=== PATIENT | female | born 1995 | race Caucasian/White ===

== ENCOUNTER 2023-01-15 21:17 | Outpatient (REF) | payer OTHER, SELFPAY ==
[2023-01-15 22:46] LABS: Adenovirus NOT DETECTED (NOT DETECTE); Bordetella parapertussis NOT DETECTED (NOT DETECTE); Coronavirus 229E NOT DETECTED (NOT DETECTE); Coronavirus HKU1 NOT DETECTED (NOT DETECTE); Coronavirus NL63 NOT DETECTED (NOT DETECTE); Coronavirus OC43 NOT DETECTED (NOT DETECTE); Human Metapneumovirus NOT DETECTED (NOT DETECTE); Human Rhinovirus/Enterovirus NOT DETECTED (NOT DETECTE); Influenza A NOT DETECTED (NOT DETECTE); Influenza B NOT DETECTED (NOT DETECTE); Mycoplasma pneumoniae NOT DETECTED (NOT DETECTE); Parainfluenza Virus 1 NOT DETECTED (NOT DETECTE); Parainfluenza Virus 2 NOT DETECTED (NOT DETECTE); Parainfluenza Virus 3 NOT DETECTED (NOT DETECTE); Respiratory Syncytial Virus NOT DETECTED (NOT DETECTE); SARS-CoV-2 NOT DETECTED (NOT DETECTE)
[2023-01-16 00:51] LABS: Parainfluenza Virus 4 DETECTED (NOT DETECTE)
== END 2023-01-15 21:18 | disposition home or self-care (01) ==
LOC: LAB 21:17
PROVIDERS: Visit Provider Nurse Practitioner Primary Care
DX: J06.9 Acute upper respiratory infection, unspecified (principal)
CPT/HCPCS: 0202U; 87070

== ENCOUNTER 2024-09-17 20:40 | Outpatient (OUT) | payer OTHER, SELFPAY ==
--- OUTSIDE RECORDS SUMMARY | 2024-06-24 06:15 | XMS_ITS ---
Author Organization [facility] Address [address] [place] [id number] Care Team Providers Care Journeyman Mechanic Name Role Phone Roseline Pickens Primary Care Provider [phone] Devan Olivia Unavailable [phone] REASON FOR VISIT 1 month f/u Social History Sex Assigned At : Social History Observation Description Sex Assigned At Female Encounters Encounter Location Date Provider Diagnosis Main [address] [place], [place] [id number] 06/24/2024 Devan Scanlon Plan Of Treatment Next Appt Details Provider Name:Devan Scanlon , 09/22/2024 11:15:00 AM, [address] [place], [id number], Progress Notes * Audie REDDYOB:1995 (29 yo F)Acc No.[id number]:06/24/2024 Patient: Lyn BYERS Provider: ADIS Mohan :1995 A ge:29 Y S ex:Female Date:06/24/2024 Phone: Address:[address], [id number] Pcp:Roseline Pickens Subjective: * Chief Complaints: * 1 . 1 month f/u. * Medical History: Objective: * Vitals: Assessment: Plan: * Treatment: Care Plan: * Problems: * Billing Information: * Visit Code: * Procedure Codes: Care Plan Details* * Electronic signature of ADIS Carr on 09/17/2024 at 08:44 PM EDT Sign off status: Pending * Provider: JAMEL MohanHNP-BC Date: 0 06/24/2024 Generated for Guy mooney/Karli/Lopez on: 0 09/17/2024 08:44 PM EDT
--- OUTSIDE RECORDS SUMMARY | 2024-09-17 20:44 | XMS_ITS | Encounter Summary ---
Author Organization [facility] tem Address [id number] [address] [place] [address] Care Team Providers Care Maintenance Apprentice Name Role Phone Yoko Bhakta Primary Care Provider [phone]- [phone] Encounter Details Date Type Department Care Team (Late st Contact Info) Description 04/07/2022 Orders Only [facility] [address] [place] [address] [address] [place] [address] Corrie Bueno PA-C [address] [place] [address], [address] [place] [address] Social History Tobacco Use Types Packs/Day Years Used Date Smoking Tobacco: Every Day Vaping/E-cigarettes Smokeless Tobacco: Never Alcohol Use Standard Drinks/Week Comments Not Currently 0 (1 standard drink = 0.6 oz pur e alcohol) Comments Unknown Sex and Gender Information Value Date Recorded Sex Assigned at Not on file Legal Sex Female 4:31 PM EDT Gender Identity Not on file Sexual Orientation Not on file documented as of this encounter Progress Notes * Corrie Bueno PA-C - 04/07/2022 3:45 PM EST New patient appointment 05/26/2022 Labs reviewed: 04/05/2022 CMP unremarkable 03/17/2022 CMP 03/17/2022 negative GI panel, negative C diff 04/05/2022 CBC unremarkable documented in this encounter Plan of Treatment Not on file documented as of this encounter Procedures Procedure Name Priority Date/Time Associated Diagnosis Comments MULTIPLE LABS Routine 03/17/2022 documented in this encounter Results * Multiple labs (03/17/2022) us Corrie Bueno PA-C [facility] Final Resu lt MANUALLY TRANSCRIBED RESULTS documented in this encounter Visit Diagnoses Not on filedocumented in this encounter Additional Health Concerns Infection Onset Date Last Indicated Resolved Time Enteric Rule-Out 09/01/2022 09/01/2022 09/01/2022 2:44 PM EDT COVID-19 Rule-Out 06/12/2023 06/12/2023 06/12/2023 7:13 PM EST COVID-19 Rule-Out 01/06/2024 01/06/2024 01/06/2024 9:10 PM EDT documented as of this encounter Care Teams Maintenance Apprentice Relationship Specialty Start Date End Date Yoko Bhakta APRN-FNP [address] [place] [address] PCP - General Family Medicine 11/08/23 documented as of this encounter
--- OUTSIDE RECORDS SUMMARY | 2024-09-17 20:44 | XMS_ITS | Encounter Summary ---
Author Organization [facility] Address [id number] [address] [place] [address] Care Team Providers Care Tipple Repairer Name Role Phone Yoko Bhakta TITLE I TEACHERWESLEY Primary Care Provider [phone]- [phone] Encounter Details Date Type Department Care Team (Late st Contact Info) Description 09/09/2024 Telephone [facility] [address] [place] [address] Leeanne Hooks, TOMAS Social History Tobacco Use Types Packs/Day Years Used Date Smoking Tobacco: Former Cigarettes Q uit: 09/16/2022 Vaping/E-cigarettes Passive Smoke Exposure: Past Smokeless Tobacco: Never Comments:Quit cigarette use 2019 05 to 1 ppd since age 13 currently vaping Delta 8 quit nicotine in vape Alcohol Use Standard Drinks/Week Comments Not Currently 0 (1 standard drink = 0.6 oz pur e alcohol) [facility] Utilities Answer Date Recorded In the past 12 months has [employer], gas, oil, or water [employer] threatened to shut off services in your home? No 06/13/2023 Social Connection and Isolat ion Panel [NHANES] Answer Date Recorded In a typical week, how many times do you talk on the phone with family, friends, or neighbors? More than three times a week 06/13/2023 How often do you get togethe r with friends or relatives? More than three times a week 06/13/2023 How often do you attend chur ch or nondenominational services? Never 06/13/2023 Do you belong to any clubs o r organizations such as latter-day groups, unions, fraternal or athletic groups, or school groups? No 06/13/2023 How often do you attend meet ings of the clubs or organizations you belong to? Never 06/13/2023 Are you , , di vorced, , never , or living with a partner? 06/13/2023 AUDIT-C Answer Date Recorded Q1: How often do you have a drink containing alcohol? Never 06/13/2023 Q2: How many drinks containi ng alcohol do you have on a typical day when you are drinking? Patient does not drink Q3: How often do you have si x or more drinks on one occasion? Never 06/13/2023 Overall Financial Resource Strain (CARDIA) Answe r Date Recorded How hard is it for you to pa y for the very basics like food, housing, medical care, and heating? Not hard at all 06/13/2023 PHQ-2 Answer Date Recorded Total Score 9 06/11/2024 [facility] - Occupational Stress Questionnaire Answer Date Recorded Do you feel stress - tense, restless, nervous, or anxious, or unable to sleep at night because your mind is troubled all the time - these days? Only a little 06/13/2023 Exercise Vital Sign Answer Date Recorde d On average, how many days pe r week do you engage in moderate to strenuous exercise (like a brisk walk)? 0 days 06/13/2023 On average, how many minutes do you engage in exercise at this level? 0 min 06/13/2023 PRAPARE - Transportation Answer Date Re corded In the past 12 months, has l ack of transportation kept you from medical appointments or from getting medications? No 09/2023 In the past 12 months, has l ack of transportation kept you from meetings, work, or from getting things needed for daily living? No 06/13/2023 Housing Instability Answer Date Recorde d Are you worried or concerned that in the next two months you may not have stable housing that you own, rent or stay in as a part of a household? No 06/13/2023 Childcare Answer Date Recorded Do problems getting child ca re make it difficult for you to work or study? No 06/13/2023 Employment Answer Date Recorded Do you need help finding a [facility] and/or a training program? No 06/13/2023 Hunger Screening Answer Date Recorded Within the past 12 months we worried whether our food would run out before we got money to buy more. Never True 08/08/2024 Within the past 12 months th e food we bought just didn't last and we didn't have money to get more. Never True 08/08/2024 Purpose - Life Answer Date Recorded I have a purpose and direction in my life. Agree 06/13/2023 Comments No Sex and Gender Information Value Date Recorded Sex Assigned at Not on file Legal Sex Female 4:31 PM EDT Gender Identity Not on file Sexual Orientation Not on file documented as of this encounter Miscellaneous Notes * Telephone Encounter - Leeanne Hooks CMA - 09/09/2024 12:30 PM EDT Phoned pt in regards to appt that was scheduled for 09/24/24 for PRODUCT TRANSFER PUMPER Referral from [facility] for chest pain that was cancelled and per pt declines to reschedule at this time as [place] of [place]. documented in this encounter Plan of Treatment Not on file documented as of this encounter Goals Goal Patient Goal Type Associated Problems Recent Progress Patient-Stated? Author safe transition to home General Yes Clara Metz LSW Note: Evaluation of progress towards goal: safe transition to home with self care documented as of this encounter Visit Diagnoses Not on filedocumented in this encounter Additional Health Concerns Assessment Noted Time PHQ-9 Depression Total Score: 9 06/12/19 25 1:40 PM EST A Body Mass Index follow-up plan has been documented for the patient 06/11/2024 2:00 PM EST documented as of this encounter Care Teams Tipple Repairer Relationship Specialty Start Date End Date Yoko Bhakta APRN-NATE [address] [place] [address] PCP - General Family Medicine 11/08/23 documented as of this encounter
--- OUTSIDE RECORDS SUMMARY | 2024-09-17 20:44 | XMS_ITS | Patient Health Record ---
Author Organization [facility] Address [address] [facility] [place] [address] Care Team Providers Care Senior Litigation Paralegal Name Role Phone Molly Lima Primary Care Provider Allergies Allergen (clinical drug ingredient) Drug/Non Drug Allergy documented on EMR Reaction Allergy Type Onset Date Status amoxicillin Amoxicillin Unknown Drug Allergy Act marylou morphine Morphine Sulfate Unknown Drug Allergy Active Reason For Referral No Information Social History Tobacco Use: Social History Observation Description Date Details (start date - stop date) Current Smoker NA - NA Sex Assigned At : Social History Observation Description Sex Assigned At Female Tobacco Use/Smoking Question Answer Notes Are you a current smoker when did you start smoking? 14 years old How often do you smoke cigarettes? every day How many cigarettes a day do you smoke? 5 or les s How soon after you wake up d o you smoke your first cigarette? 31-60 minutes Are you interested in quitting? Thinking about q uitting Additional Findings: Tobacco User Light cigarett e smoker ((1-9 cigs/day) Alcohol Screen (Audit-C) Question Answer Notes Did you have a drink contain ing alcohol in the past year? Yes How often did you have a dri nk containing alcohol in the past year? Monthly or less (1 point) How many drinks did you have on a typical day when you were drinking in the past year? 1 or 2 drinks (0 point) How often did you have 6 or more drinks on one occasion in the past year? Never (0 point) Points 1 Interpretation Negative Sexual History Question Answer Notes Had sex in the past 12 months (vaginal, oral, or anal)? Yes with Men only Use protection? No Have you ever had a Sexually transmitted disease ? No Last menstrual period 12/08/17 Tobacco use other than smoking: Question Answer Notes Are you an other tobacco user? No Plan Of Treatment No Information Medical (General) History Medical History History ICD Code asthma HTN Surgical History Surgery Date(Month/Year) cyst, ovary surgery 2013 Hospitalization History Reason Date(Month/Year) [facility] for 3 days for ovary leonardo wilfredo 2013
--- OUTSIDE RECORDS SUMMARY | 2024-09-17 20:44 | XMS_ITS | Clinical Summary ---
Author Organization [employer] Address [facility] [id number] [address] [place] [address] Care Team Providers Care Self Contained Behavior Unit Teacher Name Role Phone Yoko Bhakta Primary Care Provider [phone] Allergies Active Allergy Reactions Criticality Noted Date Comments Adhesive Rash Low 09/23/2021 Amoxicillin Hives 09/23/2021 Cephacetrile Hives 09/23/2021 Sumatriptan Anaphylaxis High 09/23/2021 Morphine Headache Medium 09/15/2022 Severe migraine Medications hydrOXYzine (VISTARIL) 50 mg capsule Take 1 capsule (50 mg total) by mouth 3 (three) times a day as needed for anxiety. 08/27/19 22 Active ARIPiprazole (ABILIFY) 10 mg tabletIndications :bipolar disorder Take 1 tablet (10 mg total) by mouth nightly Indications: manic-depression . 08/27/19 22 Active hydrocortisone (HYTONE) 2.5 % cream Apply 1 Application topically as needed (hemorrhoids). 04/04/20 22 Active olmesartan (BENICAR) 20 mg tabletIndications :hypertension Take 1 tablet (20 mg total) by mouth once daily at bedtime Indications: high blood pressure. 05/24/19 23 Active FLORASTOR 250 mg capsule Take 1 capsule (250 mg total) by mouth in the morning. 05/05/19 23 Active fluticasone propionate (FLONASE) 50 mcg/actuation nasal sprayIndications: allergic rhinitis Administer 1 spray into each nostril in the morning. Indications: inflammation of the nose due to an allergy. 08/19/19 23 Active loratadine (CLARITIN) 10 mg tabletIndications :allergic rhinitis Take 1 tablet (10 mg total) by mouth in the morning. Indications: inflammation of the nose due to an allergy. 08/19/19 23 Active omeprazole (PriLOSEC) 40 mg capsule Take 1 capsule (40 mg total) by mouth nightly. Active tiZANidine (ZANAFLEX) 4 mg tablet Take 1 tablet (4 mg total) by mouth daily as needed for muscle spasms. Active propranolol LA (INDERAL LA) 80 mg 24 hr capsule Take 1 capsule (80 mg total) by mouth in the morning. Active rimegepant (NURTEC ODT) 75 mg tablet,disintegra ting One tablet daily under the tongue PRN up to 2 times per week 8 tablet 06/14/19 24 Active escitalopram (LEXAPRO) 10 mg tablet Take 1 tablet (10 mg total) by mouth in the morning. 01/14/20 24 Active albuterol (PROVENTIL,VENTOL IN) 2.5 mg /3 mL (0.083 %) nebulizer solutionIndicatio ns:Exacerbation of asthma, unspecified asthma severity, unspecified whether persistent Inhale 3 mL (2.5 mg total) by nebulization every 6 (six) hours as needed for wheezing. 75 mL 02/16/20 24 Active ibuprofen (MOTRIN) 800 mg tablet Take 1 tablet (800 mg total) by mouth every 6 (six) hours as needed for pain. Active ubrogepant (UBRELVY) 100 mg tablet Take by mouth. Activ e lamoTRIgine (LaMICtal) 25 mg tablet Take 2 tablets (50 mg total) by mouth. 06/20/19 25 Active norethindrone (MICRONOR) 0.35 mg tabletIndications :Surveillance of contraceptive pill Take 1 tablet (0.35 mg total) by mouth in the morning. 28 tablet 11 07/10/19 25 Active ondansetron (ZOFRAN) 4 mg tabletIndications :Nausea Take 1 tablet (4 mg total) by mouth every 8 (eight) hours as needed for nausea or vomiting. 20 tablet 07/11/19 25 Active Active Problems Problem Noted Date Diagnosed Date Acute respiratory failure with hypoxia Exacerbation of asthma 06/13/2023 Migraine headache 06/13/2023 Shortness of breath 04/23/2023 Murmur, cardiac 04/23/2023 GERD (gastroesophageal reflux disease) 3 Diarrhea 09/15/2022 Vapes nicotine containing substance 09/22/2021 Essential hypertension 09/22/2021 Syncope 09/22/2021 Encounters Date Type Department Care Team Description 09/09/2024 Telephone [facility] [address] [place] [address] Leeanne Hooks CMA 08/20/2024 8:21 PM EDT - 08/20/2024 10:50 PM EDT Emergency [facility] - Emergency [address] [facility] [phone] Asif Martin MD Syncope, unspecified syncope type (Primary Dx) Discharge Disposition: Home 08/20/2024 Travel 08/20/2024 Nurse Triage [facility] Call Center [address] [place] [address] Stu Almanza RN 08/08/2024 7:54 PM EDT - 08/08/2024 10:30 PM EDT Emergency [facility] - Emergency [address] [place] [phone] Branden Stallings MD Chest pain, unspecified type (Primary Dx) Discharge Disposition: Home 08/08/2024 Travel 07/18/2024 11:37 AM EDT - 07/18/2024 2:42 PM EDT Emergency [facility] - Emergency [address] [facility] [place] [phone] Maricel Peguero MD BRBPR (bright red blood per rectum) (Primary Dx); Hemorrhoids, unspecified hemorrhoid type Discharge Disposition: Home 07/18/2024 Travel 07/10/2024 Telephone [facility] [address] [place] [address] Anika Herring MA 07/09/2024 9:00 AM EDT Office Visit [facility] [address] [place] [place] [address] Encounter for counseling regarding contraception (Primary Dx); Surveillance of contraceptive pill 07/07/2024 5:02 PM EDT - 07/07/2024 5:12 PM EDT Emergency [facility] - Emergency [address] [place] [address] Asif Martin MD Contusion of left foot, initial encounter (Primary Dx) Discharge Disposition: Home 07/07/2024 Travel from Last 3 Months Immunizations Immunization Administration Dates Next Due Tdap 09/11/2022 Family History Medical History Relation Name Comments Diabetes Father Hyperlipidemia Father Hypertension Father Sleep apnea Father Cancer Maternal Grandfather lung Cancer Maternal Grandmother lung Anesthesia problems Neg Hx Relation Name Status Comments Father Maternal Grandfather Maternal Grandmother Social History Tobacco Use Types Packs/Day Years Used Date Smoking Tobacco: Former Cigarettes Q uit: 09/16/2022 Vaping/E-cigarettes Passive Smoke Exposure: Past Smokeless Tobacco: Never Tobacco Cessation:Counseling Given: Not Answered Comments:Quit cigarette use 2019 05 to 1 ppd since age 13 currently vaping Delta 8 quit nicotine in vape Alcohol Use Standard Drinks/Week Comments Not Currently 0 (1 standard drink = 0.6 oz pur e alcohol) [facility] [employer] Answer Date Recorded In the past 12 months has e Feedback, gas, oil, or water [employer] threatened to shut off services in your [...] often do you attend chur ch or spiritism services? Never 06/13/2023 Do you belong to any clubs o r organizations such as christian groups, unions, fraternal or athletic groups, or [...] Answer Date Recorded Total Score 9 06/11/2024 [facility] of Occupat ional Health - Occupational Stress [...] Recorded Do you need help finding a l ocal career center and/or a training program? No [...] on file Sexual Orientation Not on file Last Filed Vital Signs Vital Sign Reading Time Taken Comments Blood Pressure 116/61 08/20/2024 10:00 PM EDT Pulse 98 08/20/2024 10:00 PM EDT Temperature 37 C (98.6 F) 08/20/2024 8:21 PM EDT Respiratory Rate 16 08/20/2024 10:00 PM EDT Oxygen Saturation 97% 08/20/2024 10:00 PM EDT Inhaled Oxygen Concentration - - Weight 129.3 kg (285 lb) 08/20/2024 8:21 PM EDT Height 162.6 cm (5' 4 ) 08/20/2024 8:21 PM EDT Body Mass Index 48.92 08/20/2024 8:21 PM EDT Plan of Treatment Health Maintenance Due Date Last Done Comments Influenza Vaccine 12/08/2024 06/08/2020, 12/23/2009 Adult BMI Follow Up Plan 06/11/2025 06/11/2024 Depression Screening 06/11/2025 06/11/2024 Adult BMI Screening 08/20/2025 08/20/2024 Tobacco Screening 08/20/2025 08/20/2024 Pap Smear 06/12/2027 06/11/2024, 03/0 08/2024, 02/02/2022 DTaP,Tdap and Td Vaccines (8 - Td or Tdap) 09/11/2032 09/11/2022, 12/23/2009, 09/29/1998, Additional history exists Goals Goal Patient Goal Type Associated Problems Recent Progress Patient-Stated? Author safe transition to home General Yes Clara Metz LSW Note: Evaluation of progress towards goal: safe transition to home with self care Medical Devices Not on file Procedures Procedure Name Priority Date/Time Associated Diagnosis Comments POCT , URINE (NUCG) Routine 08/20/2024 9:18 PM EDT POCT NURSING URINE MACROSCOPIC UA Routine 08/20/2024 9:16 PM EDT ER EXTRA URINE CULTURE STAT 08/20/2024 8:56 PM EDT ER EXTRA URINE STAT 08/20/2024 8:56 PM EDT EXTRA TUBES BLUE TOP Routine 08/20/2024 8:51 PM EDT EXTRA TUBES Routine 08/20/2024 8:51 PM EDT COMPREHENSIVE METABOLIC PANEL STAT 08/20/2024 8:51 PM EDT CBC WITH AUTO DIFFERENTIAL STAT 08/20/2024 8:51 PM EDT ECG 12-LEAD STAT 08/20/2024 8:19 PM EDT TROP I, HIGH SENSITIVITY 1 HOUR STAT 08/08/2024 9:26 PM EDT TROPONIN I, HIGH SENSITIVITY 0 HOUR STAT 08/08/2024 8:20 PM EDT D-DIMER STAT 08/08/2024 8:20 PM EDT TROPONIN I, HIGH SENSITIVITY 0 HOUR STAT 08/08/2024 8:20 PM EDT COMPREHENSIVE METABOLIC PANEL STAT 08/08/2024 8:20 PM EDT CBC WITH AUTO DIFFERENTIAL STAT 08/08/2024 8:20 PM EDT XR CHEST 1 VW STAT 08/08/2024 8:10 PM EDT ECG 12-LEAD STAT 08/08/2024 7:45 PM EDT POCT , URINE (NUCG) Routine 07/18/2024 12:36 PM EDT POCT NURSING URINE MACROSCOPIC UA Routine 07/18/2024 12:34 PM EDT COMPREHENSIVE METABOLIC PANEL STAT 07/18/2024 12:19 PM EDT CBC WITH AUTO DIFFERENTIAL STAT 07/18/2024 12:19 PM EDT APTT STAT 07/18/2024 12:19 PM EDT PROTIME & INR STAT 07/18/2024 12:19 PM EDT POCT , URINE (NUCG) Routine 07/09/2024 9:14 AM EDT Encounter for counseling regarding contraception Surveillance of contraceptive pill XR FOOT LT MIN 3 VWS STAT 07/07/2024 4:54 PM EDT HIGH RISK HPV W/ESSIE Routine 06/11/2024 3:48 AM EST Cervical smear, as part of routine gynecological examination from Last 3 Months or Most Recently Relevant to Health Maintenance Results * POCT , urine (08/20/2024 9:18 PM EDT) Only the most recent of3 resultswithin the time period is included. POC Urine Negative Negative 08/20/2024 9:18 PM EDT [facility] Urine 08/20/2024 9:18 PM EDT 08/20/2024 9:18 PM EDT us Asif Martin MD POINT OF CARE TEST ORDERABLES F inal Result [facility] [address] [place] [address], [place] * POCT Nursing Urine Macroscopic UA (08/20/2024 9:16 PM EDT) Only the most recent of2 resultswithin the time period is included. POC Urine Specific [place] 1.010 1.010, 1.015, 1.020, 1.025 08/20/2024 9:12 PM EDT [facility] POC Urine Leukocyte Esterase Negative Negative 08/20/2024 9:12 PM EDT [facility] POC Urine Nitrite Negative Negative 08/20/2024 9:12 PM EDT [facility] POC Urine pH 6.0 5.0, 6.0, 6.5, 7.0, 7.5, 8.0, 8.5, 5.5 08/20/2024 9:12 PM EDT [facility] POC Urine Protein Negative Negative 08/20/2024 9:12 PM EDT [facility] POC Urine Glucose Negative Negative 08/20/2024 9:12 PM EDT [facility] POC Urine Ketones Negative Negative 08/20/2024 9:12 PM EDT [facility] POC Urine Urobilinogen 0.2 E.U./dL 08/20/2024 9:12 PM EDT [facility] POC Urine Bilirubin Negative Negative 08/20/2024 9:12 PM EDT [facility] POC Urine Blood/HGB Negative Negative 08/20/2024 9:12 PM EDT [facility] Urine 08/20/2024 9:16 PM EDT 08/20/2024 9:12 PM EDT us Asif Martin MD POINT OF CARE TEST ORDERABLES F inal Result [facility] [address] [facility] [place] [address], * Extra Urine Culture (08/20/2024 8:56 PM EDT) Extra Tube Auto Resulted 08/20/2024 11:01 PM EDT [facility] Urine Urine specimen collection, clean catch / Unknown 08/20/2024 8:56 PM EDT 08/20/2024 10:11 PM EDT us Asif Martin MD URINE ORDERABLES Final Result Performing Organization Address [facility] Co de Phone Number [address] [place] [address], [place] * Extra Urine (08/20/2024 8:56 PM EDT) Extra Tube Auto Resulted 08/20/2024 11:01 PM EDT [facility] Urine Urine specimen collection, clean catch / Unknown 08/20/2024 8:56 PM EDT 08/20/2024 10:11 PM EDT us Asif Martin MD URINE ORDERABLES Final Result Performing Organization Address [facility] Phone Number [address] [place] [address], [place] * Light Blue Top (08/20/2024 8:51 PM EDT) Extra Tube Auto Resulted 08/20/2024 10:01 PM EDT [facility] Blood Venous blood / Unknown 08/20/2024 8:51 PM EDT 08/20/2024 8:58 PM EDT us Asif Martin MD LAB BLOOD ORDERABLES Final Resu lt Performing Organization Address [facility] Co de Phone Number [address] [place] [address], [place] * (ABNORMAL) CBC auto differential (08/20/2024 8:51 PM EDT) Only the most recent of3 resultswithin the time period is included. WBC 14.0(H) 4 - 11 x10E9/L 08/20/2024 9:07 PM EDT [facility] RBC Count 4.08 3.8 - 5.2 X10E12/L 08/20/2024 9:07 PM EDT [facility] Hemoglobin 11.9 11.7 - 15.5 g/dL 08/20/2024 9:07 PM EDT [facility] Hematocrit 34.6(L) 35 - 47 % 08/20/2024 9:07 PM EDT [facility] MCV 85 80 - 100 fL 08/20/2024 9:07 PM EDT [facility] MCH 29.1 27 - 34 pg 08/20/2024 9:07 PM EDT [facility] MCHC 34.4 32 - 36 g/dL 08/20/2024 9:07 PM EDT [facility] RDW 13.9 11.5 - 15 % 08/20/2024 9:07 PM EDT [facility] Platelet Count 269 150 - 450 X10E9/L 08/20/2024 9:07 PM EDT [facility] MPV 7.9 7 - 12 fL 08/20/2024 9:07 PM EDT [facility] Neutrophils Relative 70.9 % 08/20/2024 9:07 PM EDT [facility] Lymphocytes Relative 21.7 % 08/20/2024 9:07 PM EDT [facility] Monocytes Relative 5.5 % 08/20/2024 9:07 PM EDT [facility] Eosinophils Relative 1.6 % 08/20/2024 9:07 PM EDT [facility] Basophils Relative 0.3 % 08/20/2024 9:07 PM EDT [facility] Neutrophils Absolute (A) 9.9(H) 1.5 - 6.6 10*3/uL 08/20/2024 9:07 PM EDT [facility] Lymphocytes Absolute 3.0 1.0 - 3.5 10*3/uL 08/20/2024 9:07 PM EDT [facility] Monocytes Absolute 0.8 0.0 - 0.9 10*3/uL 08/20/2024 9:07 PM EDT [facility] Eosinophils Absolute 0.2 0.0 - 0.4 10*3/uL 08/20/2024 9:07 PM EDT [facility] Basophils Absolute 0.0 0.0 - 0.2 10*3/uL 08/20/2024 9:07 PM EDT [facility] Differential Type AUTOMATED DIFFERENTIAL 08/20/2024 9:07 PM EDT [facility] Blood Venous blood / Unknown 08/20/2024 8:51 PM EDT 08/20/2024 8:57 PM EDT us Asif Martin MD LAB BLOOD ORDERABLES Final Resu lt [facility] [address] [place] [address], [place] * (ABNORMAL) Comprehensive metabolic panel (08/20/2024 8:51 PM EDT) Only the most recent of3 resultswithin the time period is included. SODIUM 136 134 - 146 mmol/L 08/20/2024 9:14 PM EDT [facility] POTASSIUM 3.6 3.5 - 5.0 mmol/L 08/20/2024 9:14 PM EDT [facility] CHLORIDE 102 98 - 109 mmol/L 08/20/2024 9:14 PM EDT [facility] CARBON DIOXIDE 25 22 - 32 mmol/L 08/20/2024 9:14 PM EDT [facility] ANION GAP 9 5 - 15 mmol/L 08/20/2024 9:14 PM EDT [facility] BLOOD UREA NITROGEN 12 5 - 23 mg/dL 08/20/2024 9:14 PM EDT [facility] CREATININE 0.77 0.40 - 1.00 mg/dL 08/20/2024 9:14 PM EDT [facility] Comment:METHOD TRACEABLE TO IDMS STANDARD GLUCOSE 104(H) 65 - 99 mg/dL 08/20/2024 9:14 PM EDT [facility] CALCIUM 8.8 8.5 - 10.5 mg/dL 08/20/2024 9:14 PM EDT [facility] TOTAL PROTEIN 7.9 6.0 - 8.0 g/dL 08/20/2024 9:14 PM EDT [facility] ALBUMIN 4.0 3.2 - 5.3 g/dL 08/20/2024 9:14 PM EDT [facility] ALKALINE PHOSPHATASE 75 39 - 130 U/L 08/20/2024 9:14 PM EDT [facility] AST 26 <=41 U/L 08/20/2024 9:14 PM EDT [facility] ALT 24 <=31 U/L 08/20/2024 9:14 PM EDT [facility] BILIRUBIN,TOTAL 0.6 0.3 - 1.2 mg/dL 08/20/2024 9:14 PM EDT [facility] EGFR Non-Race Dependent >90 >=60 ml/min/1.7 3sq.m 08/20/2024 9:14 PM EDT [facility] Comment: eGFR not reported due to non-numeric value for Creatinine. Reported eGFR is based on the CKD-EPI 2020 equation that does not use a race coefficient. Blood Venous blood / Unknown 08/20/2024 8:51 PM EDT 08/20/2024 8:57 PM EDT Asif Martin MD LAB BLOOD ORDERABLES Final Resu lt [facility] [address] [facility] [place] [address], [place] * ECG 12 lead (08/20/2024 8:19 PM EDT) Only the most recent of2 resultswithin the time period is included. 08/20/2024 8:19 PM EDT Narrative [facility] - 08/23/2024 4:10 PM EDT us Asif Martin MD ECG ORDERABLES Final Result Performing Organization Address City/[facility]/ZIP Co de Phone Number [facility] * Troponin I, High Sensitivity 1 Hour (08/08/2024 9:26 PM EDT) TROPONIN I, HIGH SENSITIVITY <2 <16 ng/L 08/08/2024 9:59 PM EDT [facility] Blood Venous blood / Unknown 08/08/2024 9:26 PM EDT 08/08/2024 9:30 PM EDT Branden Stallings MD LAB BLOOD ORDERABLES Final Result Performing Organization Address [facility] Co de Phone Number [address] [place] [address], [place] * Troponin I, High Sensitivity 0 Hour (08/08/2024 8:20 PM EDT) Pathologist [facility] TROPONIN I, HIGH SENSITIVITY <2 <16 ng/L 08/08/2024 9:00 PM EDT [facility] Blood Venous blood / Unknown 08/08/2024 8:20 PM EDT 08/08/2024 8:26 PM EDT Branden Stallings MD LAB BLOOD ORDERABLES Final Result Performing Organization Address [facility] Co de Phone Number [address] [place] [address], [place] * D-Dimer (08/08/2024 8:20 PM EDT) D DIMER <150 1 - 255 ug/mL 08/08/2024 8:46 PM EDT [facility] Comment:Results <255 ng/mL D DU: The presensence of a VTE can safely be excluded with a negative D-Dimer result and Wells score. A negative result doesn't exclude the possibility of DIC. The test should be repeated along with other diagnostic tests if the patient's symptoms persist or worsen. Blood Venous blood / Unknown 08/08/2024 8:20 PM EDT 08/08/2024 8:26 PM EDT Branden Stallings MD LAB BLOOD ORDERABLES Final Result [facility] [address] [place] [address], [place] * X-ray chest 1 view (08/08/2024 8:10 PM EDT) Anatomical Region Laterality Modality Body, Chest N/A Computed Radiogr aphy 08/08/2024 8:16 PM EDT Narrative 08/08/2024 8:16 PM EDT Portable chest: HISTORY: Chest pain. Single view of the chest was obtained and compared to prior exam dated 02/16/2024. Cardiac and mediastinal contours are within normal limits. Lungs are clear. There is no vascular congestion, effusion, or pneumothorax. IMPRESSION: Negative exam. Finalized by Simon Kathleen MD on 08/08/2024 8:16 PM Procedure Note Simon Kathleen MD - 08/08/2024 Portable chest: HISTORY: Chest pain. Single view of the chest was obtained and compared to prior exam dated104/17/2023. Cardiac and mediastinal contours are within normal limits.Lungs are clear. There is no vascular congestion, effusion, orpneumothorax. IMPRESSION: Negative exam. Finalized by Simon Kathleen MD on 08/08/2024 8:16 PM Branden Stallings MD IMG DIAGNOSTIC IMAGING ORDE DONYA Final Result * APTT (07/18/2024 12:19 PM EDT) aPTT 28 26 - 37 sec 07/18/2024 12:41 PM EDT [facility] Comment:NEW REFERENCE RANGE Blood (PLASMA) 07/18/2024 12 :19 PM EDT 07/18/2024 12:29 PM EDT Maricel Peguero MD LAB BLOOD ORDERABLES Final Re sult Performing Organization Address [facility] Co de Phone Number [address] [address] * Protime & INR (07/18/2024 12:19 PM EDT) Protime 11.5 9.8 - 13.2 sec 07/18/2024 12:41 PM EDT [facility] Comment:NEW REFERENCE RANGE Inr 1.0 0.9 - 1.2 07/18/2024 12:41 PM EDT [facility] Blood (PLASMA) 07/18/2024 12 :19 PM EDT 07/18/2024 12:29 PM EDT Maricel Peguero MD LAB BLOOD ORDERABLES Final Re sult Performing Organization Address [facility] Co de Phone Number [address] [address] * X-ray foot left minimum 3 views (07/07/2024 4:54 PM EDT) Anatomical Region Laterality Modality Lower Extremities, MSK, Foot Left Com puted Radiography 07/07/2024 4:56 PM EDT Narrative 07/07/2024 4:57 PM EDT History: Pain after trauma Exam/Technique: 3 views of the left foot were obtained. Comparison: None Findings: There is no evidence for acute osseous abnormality. Definite fracture is not seen. IMPRESSION: Normal left foot. Finalized by Ezequiel Maguire MD on 07/07/2024 4:57 PM Procedure Note Ezequiel Maguire MD - 07/07/2024 History: Pain after trauma Exam/Technique: 3 views of the left foot were obtained. Comparison: None Findings: There is no evidence for acute osseous abnormality. Definitefracture is not seen. IMPRESSION: Normal left foot. Finalized by Ezequiel Maguire MD on 07/07/2024 4:57 PM us Asif Martin MD IMG DIAGNOSTIC IMAGING ORDERABL ES Final Result * High risk HPV w/essie (06/11/2024 3:48 AM EST) Hpv specimen type ThinPrep 06/12/2024 3:48 AM EST [facility] Hpv 16 Negative Negative^N egative 06/12/2024 12:46 PM EST [facility] Hpv 18 Negative Negative^N egative 06/12/2024 12:46 PM EST [facility] Other high risk hpv Negative Negative^N egative 06/12/2024 12:46 PM EST [facility] Comment: HPV types 31,33,35,39,45,52,56,58,59,66 and 68 DNA were undetectable. THINP 06/11/2024 3:48 AM EST 06/11/2024 3:59 AM EST us Shyla Saldana NURSING INFORMATICS ANALYST-MICROWAVE TECHNICIAN LAB BLOOD ORDERABLES Fin al Result [place] [id number] [facility], [place] [address] [facility] [address] [place] [address], [address] [place] [address] from Last 3 Months or Most Recently Relevant to Health Maintenance Insurance [place] [employer] Member Subscriber Plan / Payer (Ef fective 2023-Present) Name:Lyn Reddy Relation to Subscriber:Self Name:Lyn Reddy Payer ID:[id number] (NAIC) Group ID:Not on file Type:Not on file Address: [place] [phone] Advance Directives * Full Code (Latest Code Status on File) Date Activated Date Inactivated Comments 06/13/2023 10:12 AM 06/14/2023 3:31 PM Care Teams Self Contained Behavior Unit Teacher Relationship Specialty Start Date End Date Yoko Bhakta APRN-NATE [address] [place] [address] PCP - General Family Medicine 11/08/23
--- OUTSIDE RECORDS SUMMARY | 2024-09-17 20:44 | XMS_ITS | Encounter Summary ---
[email or web address] Address [id number] [address] [place] [address] Care Team Providers Care Neurology Director Name Role Phone Yoko Bhakta Primary Care Provider [phone]- [phone] Encounter Details Date Type Department Care Team (Late st Contact Info) Description 07/21/[address] [facility] [address] [id number] Precious Maki CNA Social History Tobacco Use Types Packs/Day Years [...] encounter Miscellaneous Notes * Telephone Encounter - Precious Maki CNA - 07/21/2022 5:11 PM EDT Request for cardiac clearance before an EGD/colon to be scheduled with Dr. Cunningham faxed to Dr. Bartlett. * Telephone Encounter - JIMENA Hart - 07/21/2022 5:11 PM EDT Clearance received from cardiology, addressed in office note dated 08/25/22. Ok to proceed with scheduling. Thank you * Telephone Encounter - Deidre Anguiano - 07/21/2022 5:11 PM EDT 08/29/22 Called patient and scheduled egd/colonoscopy at [facility] with Dr. Cunningham on 09/26/22 at 9:45am. Golytely prep sent in and prep instructions were mailed to the patient's home address. PAT visit is scheduled on 09/14/22. jm documented in this encounter Plan of Treatment Not on file documented as of this encounter Visit Diagnoses Not on filedocumented in this encounter Additional Health Concerns Infection Onset Date Last Indicated Resolved Time Enteric Rule-Out 09/01/2022 09/01/2022 09/01/2022 2:44 PM EDT COVID-19 Rule-Out 06/12/2023 06/12/2023 06/12/2023 7:13 PM EST COVID-19 Rule-Out 01/06/2024 01/06/2024 01/06/2024 9:10 PM EDT documented as of this encounter Care Teams Neurology Director Relationship Specialty Start Date End Date Yoko Bhakta APRN-FNP [address] [place] [address] PCP - General Family Medicine 11/08/23 documented as of this encounter
== END 2024-09-17 20:41 | disposition home or self-care (01) ==
LOC: SLEEP 20:43
PROVIDERS: PCP Nurse Practitioner Family; Visit Provider Nurse Practitioner Family
DX: G47.33 Obstructive sleep apnea (adult) (pediatric) (principal)
CPT/HCPCS: 95811